=== PATIENT | male | born 1955 | race Two or more races ===

== ENCOUNTER 2023-09-09 15:18 | Inpatient (IN) | payer OTHER ==
[~2023-09-09] VITALS: Ht 172.7 cm; Wt 68.0 kg
[2023-09-09] MEDS ORDERED: HUMALOG100 UNIT/2 SUBCUTANEO (15:33)
[2023-09-09] MEDS ORDERED: AMLODIPINE-OLM1 EAC3 PO (15:33)
[2023-09-09] MEDS ORDERED: LANTUS SOL100 UNIT/1 SUBCUTANEO (15:34)
[2023-09-09 18:26] LABS: HEMATOCRIT 36.1 % (39.0-48.0); HEMOGLOBIN 11.9 g/dL (13-16.00); MEAN CELL VOLUME 87.7 fL (80.0-100.00); MEAN CORPUSCULAR HEMOGLOBIN 28.9 pg (27.00-32.0); MEAN CORPUSCULAR HGB CONC 32.9 g/dl (32.0-36.0); PH,URINE 5.5 (5.0-8.0); PLATELET COUNT 260 K/uL (150-450); RED BLOOD COUNT 4.12 M/uL (4.00-6.00); RED CELL DISTRIBUTION WIDTH 14.3 % (11.5-14.5); URINE APPEARANCE Turbid; URINE BILIRRUBIN Negative (NEGATIVE); URINE BLOOD Moderate; URINE COLOR Yellow; URINE GLUCOSE Negative (NEGATIVE); URINE LEUKOCYTE Large; URINE NITRATE Negative
[2023-09-09 18:29] LABS: URINE EPITHELIAL CELLS 6.4 uL (0.0-38.8); URINE RBC 51.5 uL (0.0-20.8)
[2023-09-09 18:51] LABS: ALBUMIN 2.7 gm/dL (3.4-5.0); BILIRUBIN TOTAL 0.61 mg/dL (0.3-1.2); CALCIUM 9.3 mg/dL (8.5-10.1); CREATININE SERUM 0.85 mg/dL (0.70-1.30); GFR 89.9; GLOBULINA 5.7 G/DL (2.4-3.5); POTASSIUM 4.03 mEq/L (3.5-5.1); TOTAL PROTEIN 8.4 gm/dL (6.4-8.2)
[2023-09-09 18:52] LABS: C-REACTIVE PROTEIN 3.05 MG/DL (0.00-0.29)
[2023-09-09 18:55] LABS: URINE BACTERIA > 9821.2 uL (0.0-1933); URINE PROTEIN 100 (NEGATIVE); URINE WBC > 5548.3 uL (0.0-23.2)
[2023-09-10 02:44] LABS: INR 1.08; PARTIAL THROMBOPLASTIN TIME 28.8 SECONDS (22.0-34.0); PROTHROMBIN TIME 11.3 SECONDS (9.0-11.5)
[2023-09-14 07:27] LABS: HEMATOCRIT 33.8 % (39.0-48.0); HEMOGLOBIN 11.4 g/dL (13-16.00); MEAN CELL VOLUME 86.5 fL (80.0-100.00); MEAN CORPUSCULAR HEMOGLOBIN 29.1 pg (27.00-32.0); MEAN CORPUSCULAR HGB CONC 33.6 g/dl (32.0-36.0); PLATELET COUNT 206 K/uL (150-450); RED CELL DISTRIBUTION WIDTH 14.8 % (11.5-14.5)
[2023-09-14 07:53] LABS: ALBUMIN 2.5 gm/dL (3.4-5.0); BILIRUBIN TOTAL 0.55 mg/dL (0.3-1.2); CALCIUM 8.7 mg/dL (8.5-10.1); CREATININE SERUM 0.93 mg/dL (0.70-1.30); GFR 81.04; GLOBULINA 4.5 G/DL (2.4-3.5); POTASSIUM 4.02 mEq/L (3.5-5.1)
[2023-09-14 14:59] LABS: PH,URINE 6.5 (5.0-8.0); URINE APPEARANCE Clear; URINE BILIRRUBIN Negative (NEGATIVE); URINE BLOOD Large; URINE COLOR Yellow; URINE LEUKOCYTE Moderate; URINE NITRATE Negative; URINE UROBILINOGEN 0.2 E.U./dl
[2023-09-14 15:03] LABS: URINE BACTERIA 221.7 uL (0.0-1933); URINE RBC 1129.1 uL (0.0-20.8); URINE WBC 757.5 uL (0.0-23.2)
[2023-09-14 15:26] LABS: URINE EPITHELIAL CELLS 0.4 uL (0.0-38.8); URINE GLUCOSE 500 MG/DL (NEGATIVE); URINE PROTEIN 100 (NEGATIVE)
== END 2023-09-16 17:17 | disposition home or self-care (01) | DRG 690 ==
LOC: ER 15:19 → MEDI 22:40
PROVIDERS: General Practice; Internal Medicine; Urology; ADMIT Internal Medicine; ATTEND Internal Medicine
PROC: BW21ZZZ Computerized Tomography (CT Scan) of Abdomen and Pelvis (ICD-10-PCS; 2023-09-09)
PROC: 0T7D4DZ Dilation of Urethra with Intraluminal Device, Percutaneous Endoscopic Approach (ICD-10-PCS; 2023-09-10)
PROC: 0TJB8ZZ Inspection of Bladder, Via Natural or Artificial Opening Endoscopic (ICD-10-PCS; principal; 2023-09-10 13:30)
DX: N39.0 Urinary tract infection, site not specified (principal); C79.9 Secondary malignant neoplasm of unspecified site; N12 Tubulo-interstitial nephritis, not specified as acute or chronic; N13.30 Unspecified hydronephrosis; B96.1 Klebsiella pneumoniae [K. pneumoniae] as the cause of diseases classified elsewhere; I10 Essential (primary) hypertension

== ENCOUNTER 2023-10-04 15:15 | Emergency (ER) | payer OTHER ==
[~2023-10-04] VITALS: Ht 167.6 cm; Wt 79.8 kg
[~2023-10-04 15:15] MED LIST: AMLODIPINE-OLM1 EAC3 PO; HUMALOG100 UNIT/2 SUBCUTANEO; LANTUS SOL100 UNIT/1 SUBCUTANEO
[2023-10-04 17:23] LABS: HEMATOCRIT 41.5 % (39.0-48.0); HEMOGLOBIN 13.7 g/dL (13-16.00); MEAN CELL VOLUME 87.6 fL (80.0-100.00); MEAN CORPUSCULAR HEMOGLOBIN 28.9 pg (27.00-32.0); PLATELET COUNT 207 K/uL (150-450); RED BLOOD COUNT 4.74 M/uL (4.00-6.00); RED CELL DISTRIBUTION WIDTH 14.5 % (11.5-14.5)
[2023-10-04 18:07] LABS: URINE APPEARANCE Cloudy; URINE BILIRRUBIN Negative (NEGATIVE); URINE BLOOD Small; URINE COLOR Yellow; URINE GLUCOSE Negative (NEGATIVE); URINE LEUKOCYTE Moderate; URINE NITRATE Negative
[2023-10-04 18:12] LABS: URINE BACTERIA 537.9 uL (0.0-1933); URINE RBC 65.8 uL (0.0-20.8); URINE WBC 913.5 uL (0.0-23.2)
[2023-10-04 18:16] LABS: URINE EPITHELIAL CELLS 0.9 uL (0.0-38.8); URINE PROTEIN 100 (NEGATIVE)
[2023-10-04 18:59] LABS: CALCIUM 9.5 mg/dL (8.5-10.1); CREATININE SERUM 0.9 mg/dL (0.70-1.30); GFR 84.17; POTASSIUM 3.73 mEq/L (3.5-5.1)
[2023-10-04] MEDS ORDERED: DUI500 PO (20:21)
== END 2023-10-04 21:40 | disposition home or self-care (01) ==
LOC: ER 15:15
PROVIDERS: General Practice
DX: N39.0 Urinary tract infection, site not specified (principal); R51.9 Headache, unspecified